=== PATIENT | female | born 1950 | race Caucasian/White ===

== ENCOUNTER → 2020-12-20 | Outpatient (CLI) | payer MEDICARE | END | disposition home or self-care (01) | LOC: RAD 09:04 | PROVIDERS: ATTEND Psychiatry & Neurology Neurology | DX: R20.2 Paresthesia of skin (principal) | CPT/HCPCS: 95816 ==

== ENCOUNTER 2023-01-02 07:08 | Day surgery (SDC) | payer MEDICARE ==
[2023-01-02] VITALS (16 sets, daily range): BP systolic 143–169; BP diastolic 59–93; PULSE 66–83; RESP 16; TEMP 97.9; O2SAT 90–97
[~2023-01-02] VITALS: Ht 160 cm; Wt 59.8 kg
[2023-01-02] MEDS ORDERED: DIPH-423 PO (08:08)
[2023-01-02] MEDS ORDERED: LOPE2CAP14 PEG (08:08)
[2023-01-02] MEDS ORDERED: MELA10TA2 PO (08:08)
[2023-01-02] MEDS ORDERED: ALBU90AE PO (08:08)
[2023-01-02] MEDS ORDERED: FLUT15.815 INH (08:08)
[2023-01-02] MEDS ORDERED: MONT-40 PO (08:08)
[2023-01-02] MEDS ORDERED: POTA-206 PO (08:08)
[2023-01-02] MEDS ORDERED: HYDR-3965 PO (08:08)
[2023-01-02] MEDS ORDERED: SERT-433 PO (08:08)
[2023-01-02] MEDS ORDERED: TORS10TA17 PO (08:08)
[2023-01-02] MEDS ORDERED: FLUT1BLS9 INH (08:08)
[2023-01-02] MEDS ORDERED: CALC600T14 PO (08:08)
[2023-01-02] MEDS ORDERED: ATOR-2 PO (08:08)
[2023-01-02] MEDS ORDERED: METO-395 PO (08:08)
[2023-01-02] MEDS ORDERED: MAGN400C PO (08:08)
[2023-01-02 08:42] LABS: BASOPHILS % (AUTO) 0.2 % (0-1); EOSINOPHILS % (AUTO) 0.4 % (0-6); HEMATOCRIT 39.5 % (35.0-45.0); HEMOGLOBIN 13.3 g/dl (12.0-16.0); LYMPHOCYTES # (AUTO) 1.3 X10'3 (1.1-4.8); LYMPHOCYTES % (AUTO) 13.3 % (21-51); MEAN CORPUSCULAR HEMOGLOBIN 29.6 PG (27.0-31.0); MEAN CORPUSCULAR HGB CONC 33.6 g/dL (33.0-36.5); MEAN CORPUSCULAR VOLUME 87.9 FL (78-98); MEAN PLATELET VOLUME 9.1 FL (7.4-10.4); MONOCYTES # (AUTO) 0.6 X10'3 (0-0.9); NEUTROPHILS # (AUTO) 7.9 X10'3 (1.8-7.7); NEUTROPHILS % (AUTO) 80.1 % (42-75); PLATELET COUNT 157 X10'3 (140-440); RED CELL DISTRIBUTION WIDTH 16.7 % (11.5-14.5); WHITE BLOOD COUNT 9.9 X10'3 (4.5-11.0)
[2023-01-02 09:06] LABS: INR 1.1 INR; PROTHROMBIN TIME 11.4 SECONDS (9.0-12.0)
[2023-01-02] MEDS ORDERED: gelatin sponge, absorbable (Gelfoam 12-7MM) sponge TP ONE (09:48)
[2023-01-02] MEDS ORDERED: midazolam 1 mg/ML 2ml injection ONE (09:48)
[2023-01-02] MEDS ORDERED: fentaNYL/PF 50MCG/1 ML 2ML syringe ONE (09:48)
[2023-01-02] MEDS ORDERED: morphine 2 MG/ML inj. syringe IV PRN (11:35)
== END 2023-01-02 13:40 | disposition home or self-care (01) ==
LOC: SSTAY O 07:08
PROVIDERS: ATTEND Radiology Vascular & Interventional Radiology
DX: K76.89 Other specified diseases of liver (principal); R91.1 Solitary pulmonary nodule; Z79.899 Other long term (current) drug therapy; Z98.890 Other specified postprocedural states; Z88.8 Allergy status to other drugs, medicaments and biological substances
CPT/HCPCS: 36415; 47000; 74150; 76942; 85025; 85610; 99152; 99153; J2250; J2270; J3010; J7030